=== PATIENT | female | born 1980 | race Caucasian/White ===

== ENCOUNTER 2016-09-19 18:46 | Emergency (ER) | payer MEDICAID ==
[~2016-09-19] VITALS: Wt 66.0 kg
[~2016-09-19 18:46] MED LIST: IBUP-1542 PO; IBUP800T25 PO; ONDA4TAB35 PO; TRAM50TA2 PO
[2016-09-19] MEDS ORDERED: ONDANSETRON (ODT) 4 MG TAB ODT STA (20:35)
[2016-09-19] MEDS ORDERED: KETOROLAC 60 MG INJ IM STA (20:35)
[2016-09-19] MEDS ORDERED: HYDR-906 PO (21:30)
[2016-09-19] MEDS ORDERED: ONDA4TAB14 PO (21:30)
[2016-09-19] MEDS ORDERED: ASPI1TAB30 PO (21:30)
--- NOTE | 2016-09-19 21:32 | ERD ---
ER Documentation Chief Complaint Date/Time DATE: 09/19/16 TIME: 21:30 Chief Complaint POMPA with dizziness and fatigue x8 days HPI 36-year-old female presents with headache that is on the right side of her head that she has had intermittently for the past 8 days. Denies any nausea or vomiting. Denies any photosensitivity, blurry, or double vision. Denies trauma. She has taken Motrin which does not really help. Denies any neck stiffness. Denies any fever. ROS All systems reviewed and are negative except as per history of present illness. Medications Home Meds Active Scripts Aspirin/Acetaminophen/Caffeine (Excedrin Migraine Caplet) 1 Each Tablet, 1 EACH PO Q6, #30 TAB Prov:ZACK CRAFT PA-C 09/19/16 Ondansetron (Ondansetron Odt) 4 Mg Tab.rapdis, 4 MG PO Q6H Y for NAUSEA AND/OR VOMITING, #15 TAB Prov:ZACK CRAFT PA-C 09/19/16 Hydrocodone/Acetaminophen ([place] 5-325 Tablet) 1 Each Tablet, 1 TAB PO Q6H Y for PAIN, #20 TAB Prov:ZACK CRAFT PA-C 09/19/16 Tramadol HCl (Tramadol HCl) 50 Mg Tablet, 50 MG PO Q4 Y for PAIN, #20 TAB Prov:CODIE GARY MD 01/29/16 Ibuprofen* (Motrin*) 600 Mg Tab, 600 MG PO Q6, #20 TAB Prov:CODIE GARY MD 01/29/16 Ondansetron Hcl* (Zofran* ODT) 4 mg -ODT Tab.disper, 4 MG PO DAILY Y for NAUSEA AND/OR VOMITING, #10 TAB 0 Refills Prov:MAGUI MARTINO PA-C 07/19/15 Ibuprofen* (Motrin*) 800 Mg Tab, 800 MG PO Q8, #30 TAB 0 Refills Prov:MAGUI MARTINO PA-C 07/19/15 Allergies Allergies: Coded Allergies: No Known Allergy (Unverified , 01/29/16) PMhx/Soc History of Surgery: No Anesthesia Reaction: No Hx Neurological Disorder: No Hx Respiratory Disorders: No Hx Psychiatric Problems: No Hx Miscellaneous Medical Probl: No Hx Alcohol Use: No Hx Substance Use: No Hx Tobacco Use: No Smoking Status: Never smoker FmHx Family History: No diabetes Physical Exam Vitals Vital Signs Date Time Temp Pulse Resp B/P Pulse Ox O2 Delivery O2 Flow Rate FiO2 09/19/16 18:50 97.9 59 20 109/59 99 Physical Exam General: well developed, well nourished, alert, nontoxic, no distress Head: normocephalic, atraumatic Eyes: PERRL, normal conjunctiva Neck: Supple, nontender, no lymphadenopathy, no midline tenderness Oropharynx: no tonsilar erythema or edema, uvula midline, no exudates, no kissing tonsils, no drooling Respiratory: Clear to auscaultation bilaterally, speaks in full sentences, no use of accesory muscles or labored breathing, no rales, ronchi, or wheezing Cardiovascular: RRR, No murmurs GI: soft, non tender, non distended, negative murphys sign, negative mcburneys point tenderness, no cva tenderness bilaterally, no rebound or guarding Neuro: CN 2-12 intact, normal speech, pan devulcanizer helper strength 5/5 bilaterally, rapid alternating movements wnl, romberg and pronator drift wnl Results 24 hrs Current Medications Medications (Trade) Dose Ordered Sig/Angie Route PRN Reason Start Time Stop Time Status Last Admin Dose Admin Ketorolac Tromethamine (Toradol) 60 mg ONCE STAT IM 09/19/16 20:35 09/19/16 20:36 DC 09/19/16 20:51 Ondansetron HCl (Zofran Odt) 4 mg ONCE STAT ODT 09/19/16 20:35 09/19/16 20:36 DC 09/19/16 20:51 Procedures/MDM 36-year-old female presents with headache. Vital signs are normal she is well- appearing in no distress. Her neurological examination is normal. She was given Toradol and Zofran with some improvement of her symptoms. I discharged her with Excedrin, Zofran, and a small amount of Broad Top. I doubt any acute emergent intracranial pathology given her presentation, normal vitals, normal neurological examination therefore no CT scan was ordered. Recommended this patient follow up with her primary care doctor within 48 hours or return to the emergency room for any worsening of symptoms. However this time I do believe there is suitable for outpatient management. I answered all their questions and they agreed with the plan and were discharged home. Departure Diagnosis: Primary Impression: Migraine Condition: Stable Patient Instructions: Headache, Migraine (Classical) Additional Instructions: Llame al doctor MAANA y grace king MAGGI PARA DENTRO DE 1-2 MORALES.Dgale a la secretaria que nosotros le instruimos hacer esta maggi.Avise o llame si cheney condicin se empeora antes de la maggi. Regresa aqui si peor o no mejor. ZACK CRAFT PA-C September 19, 2016 21:32
[2016-09-19 21:38] VITALS: PULSE 64; RESP 16; TEMP 98.1
== END 2016-09-19 21:39 | disposition home or self-care (01) ==
LOC: FTE 18:46
DX: G43.909 Migraine, unspecified, not intractable, without status migrainosus (principal)
CPT/HCPCS: 96372; J1885; Z7502; Z7610

== ENCOUNTER 2016-10-02 08:30 | Emergency (ER) | payer MEDICAID ==
[~2016-10-02] VITALS: Wt 66.0 kg
[~2016-10-02 08:30] MED LIST changes: +ASPI1TAB30 PO; +HYDR-906 PO; +ONDA4TAB14 PO
[2016-10-02] MEDS ORDERED: HYDROCODONE/APAP (5/325) TAB PO ONE (09:30)
--- NOTE | 2016-10-02 09:48 | RADRPT ---
PROCEDURE: CT Brain without. CLINICAL INDICATION: Headaches. TECHNIQUE: A CT of the brain was performed on a multi-slice CT scanner utilizing axial sections fr om the skull base through the vertex without contrast. Coronal and sagittal reconstructed images w ere provided. One or more of the following does reduction techniques were used: Automated exposure control; adjustment of the mA and/or kV according to patient size; use of the aorta of reconstructi on technique. Images were reviewed on a high-resolution PACS workstation. The exam CTDI = 44.8 mGy. The exam DLP = 630.2 mGy-cm. COMPARISON: None available FINDINGS: The ventricles and sulci are symmetric and normal in size and morphology. There is no evidence of i ntracranial hemorrhage, mass effect, edema or midline shift. No abnormal intra-axial or extra-axial fluid collections are seen. The higuera/white matter differentiation is well preserved. The osseous structures and visualized sinuses are unremarkable. The mastoid air cells are clear. Th e surrounding soft tissue scalp and bony calvarium are intact and normal. IMPRESSION: 1. Unremarkable CT brain. RPTAT: AA .Yemi Feldman MD, MD Date Time Electronically viewed and signed by .Yemi Feldman MD, MD on 10/02/2016 09:48 .B/
[2016-10-02 10:26] LABS: URINE BLOOD (Dip) POC Negative (NEGATIVE)
[2016-10-02] MEDS ORDERED: NAPR-260 PO (10:33)
[2016-10-02] MEDS ORDERED: HYDR-906 PO (10:33)
--- NOTE | 2016-10-02 11:46 | ERD ---
ER Documentation Chief Complaint Date/Time DATE: 10/02/16 TIME: 11:43 Chief Complaint HEADACHE X15 DAYS, NO INJURY, EAR PROBLEM HPI 36-year-old female comes emergency department with headache 2 weeks. She describes as pressure-like, bitemporal, constant. She states that comes and goes throughout the day and not improving with the medication as prescribed last time including extension. She states that she usually gets migraines with throbbing pain however states that headache is different this time. She denies any blurred vision, paresthesias or weakness. She denies fevers or chills or neck stiffness. ROS All systems reviewed and are negative except as per history of present illness. Medications Home Meds Active Scripts Naproxen* (Naprosyn*) 500 Mg Tablet, 500 MG PO BID Y for PAIN AND/OR INFLAMMATION, #30 TAB Prov:ALLAN DUKE PA-C 10/02/16 Hydrocodone/Acetaminophen ([place] 5-325 Tablet) 1 Each Tablet, 1 TAB PO Q6H Y for PAIN, #7 TAB Prov:ALLAN DUKE PA-C 10/02/16 Aspirin/Acetaminophen/Caffeine (Excedrin Migraine Caplet) 1 Each Tablet, 1 EACH PO Q6, #30 TAB Prov:ZACK CRAFT PA-C 09/19/16 Ondansetron (Ondansetron Odt) 4 Mg Tab.rapdis, 4 MG PO Q6H Y for NAUSEA AND/OR VOMITING, #15 TAB Prov:ZACK CRAFT PA-C 09/19/16 Hydrocodone/Acetaminophen ([place] 5-325 Tablet) 1 Each Tablet, 1 TAB PO Q6H Y for PAIN, #20 TAB Prov:ZACK CRAFT PA-C 09/19/16 Tramadol HCl (Tramadol HCl) 50 Mg Tablet, 50 MG PO Q4 Y for PAIN, #20 TAB Prov:CODIE GARY MD 01/29/16 Ibuprofen* (Motrin*) 600 Mg Tab, 600 MG PO Q6, #20 TAB Prov:CODIE GARY MD 01/29/16 Ondansetron Hcl* (Zofran* ODT) 4 mg -ODT Tab.disper, 4 MG PO DAILY Y for NAUSEA AND/OR VOMITING, #10 TAB 0 Refills Prov:MAGUI MARTINO PA-C 07/19/15 Ibuprofen* (Motrin*) 800 Mg Tab, 800 MG PO Q8, #30 TAB 0 Refills Prov:SALENAMAGUI LOPEZ 07/19/15 Allergies Allergies: Coded Allergies: No Known Allergy (Unverified , 01/29/16) PMhx/Soc History of Surgery: No Anesthesia Reaction: No Hx Neurological Disorder: No Hx Respiratory Disorders: No Hx Psychiatric Problems: No Hx Miscellaneous Medical Probl: No Hx Alcohol Use: No Hx Substance Use: No Hx Tobacco Use: No Smoking Status: Never smoker Physical Exam Vitals Vital Signs Date Time Temp Pulse Resp B/P Pulse Ox O2 Delivery O2 Flow Rate FiO2 10/02/16 08:35 97.8 71 17 112/72 97 Physical Exam General: Well-developed, well-nourished. The patient appears in no acute distress. HEENT: Head is normocephalic, atraumatic. No scleral icterus. Pupils are equal , round, and reactive. Oral mucous membranes are moist. No pharyngeal erythema. Neck: Supple. Nontender. Lungs: Clear to auscultation. Normal air movement. Heart: Regular rate and rhythm. S1 and S2 are normal. No murmurs, gallops, or rubs. Abdomen: Soft, nontender, nondistended. Bowel sounds are normoactive. Extremities: No clubbing or cyanosis. Normal pulses. Moving extremities x 4. No weakness. Neuro: M/S: Alert and oriented Face: EOMI, CN II-XII grossly intact Motor: Normal strength throughout Sensation: Normal sensation throughout Speech: Normal Cerebel: Normal coordination Normal gait Normal finger to nose DTR: 2+ and symmetric upper/lower extremities Skin: Normal turgor. No rash or lesions. Results 24 hrs Laboratory Tests Test 10/02/16 10:29 Bedside Urine pH (LAB) 6.0 Bedside Urine Protein (LAB) Negative Bedside Urine Glucose (UA) Negative Bedside Urine Ketones (LAB) Negative Bedside Urine Blood Negative Bedside Urine Nitrite (LAB) Negative Bedside Urine Leukocyte Esterase (L Negative Current Medications Medications (Trade) Dose Ordered Sig/Angie Route PRN Reason Start Time Stop Time Status Last Admin Dose Admin Acetaminophen/ Hydrocodone Bitart ([place] (5/325)) 1 tab ONCE ONCE PO 10/02/16 09:30 10/02/16 09:31 DC 10/02/16 11:00 PROCEDURE: CT Brain without. CLINICAL INDICATION: Headaches. TECHNIQUE: A CT of the brain was performed on a multi-slice CT scanner utilizing axial sections from the skull base through the vertex without contrast. Coronal and sagittal reconstructed images were provided. One or more of the following does reduction techniques were used: Automated exposure control; adjustment of the mA and/or kV according to patient size; use of the aorta of reconstruction technique. Images were reviewed on a high-resolution PACS workstation. The exam CTDI = 44.8 mGy. The exam DLP = 630.2 mGy-cm. COMPARISON: None available FINDINGS: The ventricles and sulci are symmetric and normal in size and morphology. There is no evidence of intracranial hemorrhage, mass effect, edema or midline shift. No abnormal intra-axial or extra-axial fluid collections are seen. The higuera/white matter differentiation is well preserved. The osseous structures and visualized sinuses are unremarkable. The mastoid air cells are clear. The surrounding soft tissue scalp and bony calvarium are intact and normal. IMPRESSION: 1. Unremarkable CT brain. RPTAT: AA .Yemi Feldman MD, MD Date Time Electronically viewed and signed by .Yemi Feldman MD, MD on 2016 09:48 .B/ Procedures/MDM 36-year-old female comes to emergency room with bitemporal headache, I suspect patient's headache is tension-like. She was previously seen was given pain medication however the extension was not helping. She was trialed on G[place]am in emergency department and reports significant treatment of her pain. CT scan of the head was ordered given that this is not her usual headache, and has not been improving for 2 weeks. There is no evidence of mass, hemorrhage, no AV malformation. Additionally other sources including meningitis encephalitis are considered however unlikely. Patient will be given a short course of [place] as well as Naprosyn for pain. Departure Diagnosis: Primary Impression: Headache Condition: Good Patient Instructions: Tension Headaches, Self-Care for Headaches ALLAN DUKE PA-C October 02, 2016 11:46
== END 2016-10-02 11:03 | disposition home or self-care (01) ==
LOC: FTE 08:30
DX: R51 Headache (principal); Z79.82 Long term (current) use of aspirin
CPT/HCPCS: 70450; 81003; Z7610

== ENCOUNTER 2017-05-05 10:10 | Emergency (ER) | payer MEDICAID ==
[~2017-05-05] VITALS: Ht 157.5 cm; Wt 80.0 kg
[~2017-05-05 10:10] MED LIST changes: -ASPI1TAB30 PO; +ASPI1TAB31 PO; +NAPR-260 PO
[2017-05-05 10:18] VITALS: Ht 157.5 cm; Wt 80.0 kg
[2017-05-05] MEDS ORDERED: KETOROLAC 30 MG INJ IM STA (12:50)
[2017-05-05] MEDS ORDERED: TRAM50TA2 PO (12:56)
[2017-05-05] MEDS ORDERED: NAPR-260 PO (12:57)
--- NOTE | 2017-05-05 13:04 | ERD ---
ER Documentation Chief Complaint Chief Complaint Headache 8 days. HPI Patient is a 29-year-old female with concerns of a headache in her right temporal region. Patient states she has had a headache for the last 8 days. She states that she is also having pain in her right ear. Patient denies that this is the worst headache of her life. Patient states her current pain level is a 7 out of 10. Patient describes the pain to be throbbing in nature. Patient denies any sudden, worsening pain. Patient denies any nausea, vomiting , photophobia, phonophobia, fever, chills, neck pain, neck stiffness, chest pain , shortness of breath or LOC. Patient states she been taking ibuprofen with no alleviation of symptoms. Patient states she has noticed that her jaw pops in and out when opening and closing it. Patient has not seen a dentist for this pain. ROS All systems reviewed and are negative except as per history of present illness. Medications Home Meds Active Scripts Naproxen* (Naprosyn*) 500 Mg Tablet, 500 MG PO BID Y for PAIN AND/OR INFLAMMATION, #15 TAB Prov:RE JOSEPH PA-C 05/05/17 Tramadol HCl (Tramadol HCl) 50 Mg Tablet, 50 MG PO Q4 Y for PAIN, #10 TAB Prov:RE JOSEPH PA-C 05/05/17 Naproxen* (Naprosyn*) 500 Mg Tablet, 500 MG PO BID Y for PAIN AND/OR INFLAMMATION, #30 TAB Prov:ALLAN DUKE PA-C 10/02/16 Hydrocodone/Acetaminophen ([place] 5-325 Tablet) 1 Each Tablet, 1 TAB PO Q6H Y for PAIN, #7 TAB Prov:ALLAN DUKE PA-C 10/02/16 Aspirin/Acetaminophen/Caffeine (Excedrin Migraine Caplet) 1 Each Tablet, 1 EACH PO Q6, #30 TAB Prov:ZACK CRAFT PA-C 09/19/16 Ondansetron (Ondansetron Odt) 4 Mg Tab.rapdis, 4 MG PO Q6H Y for NAUSEA AND/OR VOMITING, #15 TAB Prov:ZACK CRAFT PA-C 09/19/16 Hydrocodone/Acetaminophen ([place] 5-325 Tablet) 1 Each Tablet, 1 TAB PO Q6H Y for PAIN, #20 TAB Prov:ZACK CRAFT PA-C 09/19/16 Tramadol HCl (Tramadol HCl) 50 Mg Tablet, 50 MG PO Q4 Y for PAIN, #20 TAB Prov:CODIE GARY MD 01/29/16 Ibuprofen* (Motrin*) 600 Mg Tab, 600 MG PO Q6, #20 TAB Prov:CODIE GARY MD 01/29/16 Ondansetron Hcl* (Zofran* ODT) 4 mg -ODT Tab.disper, 4 MG PO DAILY Y for NAUSEA AND/OR VOMITING, #10 TAB 0 Refills Prov:MAGUI MARTINO PA-C 07/19/15 Ibuprofen* (Motrin*) 800 Mg Tab, 800 MG PO Q8, #30 TAB 0 Refills Prov:MAGUI MARTINO PA-C 07/19/15 Allergies Allergies: Coded Allergies: No Known Allergy (Unverified , 05/05/17) PMhx/Soc Medical and Surgical Hx: pt denies Medical Hx, pt denies Surgical Hx History of Surgery: No Anesthesia Reaction: No Hx Neurological Disorder: No Hx Respiratory Disorders: No Hx Psychiatric Problems: No Hx Miscellaneous Medical Probl: No Hx Alcohol Use: No Hx Substance Use: No Hx Tobacco Use: No Smoking Status: Never smoker Physical Exam Vitals Vital Signs Date Time Temp Pulse Resp B/P Pulse Ox O2 Delivery O2 Flow Rate FiO2 05/05/17 13:26 97.8 68 18 118/64 99 Room Air 05/05/17 10:18 98.1 66 18 122/58 99 Physical Exam GENERAL: Well-developed, well-nourished female. Appears in no acute distress. Speaking in full sentences. HEAD: Normocephalic, atraumatic. No deformities or ecchymosis. EYE: Pupils equal, round, and reactive to light. EOMs intact. No conjunctival erythema. No eye discharge. ENT: External ear without any masses or tenderness. Auditory canals clear bilaterally. TM visualized bilaterally, non-erythematous, non-bulging. Nasal mucosa pink with no discharge. Oropharynx is pink without any tonsillar erythema or exudates. No uvula deviation. No kissing tonsils. Audible click heard when patient opens and closes mouth. NECK: Supple. No meningismus. Normal ROM of the neck. LUNG: Clear to auscultation bilaterally. No rhonchi, wheezing, rales or coarse breath sounds. HEART: Regular rate and rhythm. No murmurs, rubs or gallops. BACK: No midline tenderness. EXTREMITIES: Equal pulses bilaterally. No peripheral clubbing, cyanosis or edema. No unilateral leg swelling. NEUROLOGIC: Alert and oriented x3, cooperative. Mood and affect appropriate to situation. Cranial nerves II through XII are grossly intact. Normal speech. Motor exam: 5/5 strength in upper and lower extremities. Sensory exam: Sensation intact to light touch on all four extremities. Cerebellar function exam: No dysmetria on [id number] test. Steady gait. No pronator drift. SKIN: Normal color. Warm and dry. No rashes or lesions. Results 24 hrs Current Medications Medications (Trade) Dose Ordered Sig/Angie Route PRN Reason Start Time Stop Time Status Last Admin Dose Admin Ketorolac Tromethamine (Toradol) 30 mg ONCE STAT IM 05/05/17 12:50 05/05/17 12:51 DC 05/05/17 13:07 Procedures/MDM ED COURSE: The patient was stable throughout ED course. I kept the patient and/or family informed of laboratory and diagnostic imaging results throughout the ED course. MEDICATIONS GIVEN: Toradol Patient tolerated medication well with no adverse reactions. Patient reported improvement in pain. MEDICAL DECISION MAKING: This is a 37-year-old female presents ED for concerns of a headache 8 days. Patient does report pain when opening closing her mouth and her right TMJ. Patient has not seen a dentist. Patient has a history of headaches and states that this is not the worst headache of her life. Vital signs were reviewed. Patient was afebrile. Patient is not hypoxic. Patient denied any fevers, neck stiffness, jaw claudication, visual changes or LOC. Full neurological exam was normal. Urine test is negative. I did review the patient's medical records which showed she had a negative CT scan on 10-02-16. I do not feel that there is an indication for repeat study at this time. Patient was given Toradol here in the ED. Patient was advised that she should follow-up with a dentist for her right sided TMJ pain. Patient's headache and headache are likely due to TMJ problems. Low suspicion for intracranial hemorrhage, meningitis, encephalitis, CO poisoning, temporal arteritis, benign intracranial hypertension, intracranial mass. sinusitis, cluster headache, . Patient was nontoxic, [id number] prior to discharge. PRESCRIPTIONS: Tramadol, naproxen DISCHARGE: At this time, patient is stable for discharge and outpatient management. I have encouraged the patient to hydrate well. I have instructed the patient to follow- up with his/her primary care physician in 1-2 days. If symptoms persist, patient may need to see a specialist for further examinations and testing. I have instructed the patient to promptly return to the ER at any time for any new or worsening symptoms including increased increased pain, fever, nausea, vomiting, numbness, neck stiffness, visual changes, weakness or LOC. The patient and/or family expressed understanding of and agreement with this plan. All questions were answered. Home care instructions were provided. Disclaimer: Inadvertent spelling and grammatical errors are likely due to EHR/ dictation software use and do not reflect on the overall quality of patient care. Also, please note that the electronic time recorded on this note does not necessarily reflect the actual time of the patient encounter. Departure Diagnosis: Primary Impression: Headache Headache type: unspecified Headache chronicity pattern: unspecified pattern Intractability: not intractable Qualified Code: R51 - Nonintractable headache, unspecified chronicity pattern, unspecified headache type Additional Impression: Temporomandibular joint (TMJ) pain Laterality: right Qualified Code: M26.621 - Arthralgia of right temporomandibular joint Condition: Stable Patient Instructions: Self-Care for Headaches, Helping Your Temporomandibular Joint (TMJ) Heal Referrals: [facility] YOU HAVE RECEIVED A MEDICAL SCREENING EXAM AND THE RESULTS INDICATE THAT YOU DO NOT HAVE A CONDITION THAT REQUIRES URGENT TREATMENT IN THE EMERGENCY DEPARTMENT. FURTHER EVALUATION AND TREATMENT OF YOUR CONDITION CAN WAIT UNTIL YOU ARE SEEN IN YOUR DOCTORS OFFICE WITHIN THE NEXT 1-2 DAYS. IT IS YOUR RESPONSIBILITY TO MAKE AN APPOINTMENT FOR FOLOW-UP CARE. IF YOU HAVE A PRIMARY DOCTOR --you should call your primary doctor and schedule an appointment IF YOU DO NOT HAVE A PRIMARY DOCTOR YOU CAN CALL OUR PHYSICIAN REFERRAL HOTLINE AT IF YOU CAN NOT AFFORD TO SEE A PHYSICIAN YOU CAN CHOSE FROM THE FOLLOWING [facility] CL[facility] [address] [facility]. [facility] [address] [facility]. [facility] [address] [facility]. [facility] [address] [facility]. [facility] [address] [facility]. [facility]. [address] [facility]. [facility] YOU HAVE RECEIVED A MEDICAL SCREENING EXAM AND THE RESULTS INDICATE THAT YOU DO NOT HAVE A CONDITION THAT REQUIRES URGENT TREATMENT IN THE EMERGENCY DEPARTMENT. FURTHER EVALUATION AND TREATMENT OF YOUR CONDITION CAN WAIT UNTIL YOU ARE SEEN IN YOUR DOCTORS OFFICE WITHIN THE NEXT 1-2 DAYS. IT IS YOUR RESPONSIBILITY TO MAKE AN APPOINTMENT FOR FOLOW-UP CARE. IF YOU HAVE A PRIMARY DOCTOR --you should call your primary doctor and schedule and appointment IF YOU DO NOT HAVE A PRIMARY DOCTOR YOU CAN CALL OUR PHYSICIAN REFERRAL HOTLINE AT . IF YOU CAN NOT AFFORD TO SEE A PHYSICIAN YOU CAN CHOSE FROM THE FOLLOWING [facility] INSTITUTIONS: [facility] [address] [place] [address] [facility] [address] [place] [address] [facility] [address] [place] [address] [facility] ([facility] walk in clinic) Additional Instructions: Follow-up with a dentist on an outpatient basis. See referral information. Call your primary care doctor TOMORROW for an appointment during the next 1-2 days.See the doctor sooner or return here if your condition worsens before your appointment time. RE JOSEPH PA-C May 05, 2017 13:04
[2017-05-05 13:26] VITALS: BP 118/64; PULSE 68; RESP 18; TEMP 97.8
== END 2017-05-05 13:25 | disposition home or self-care (01) ==
LOC: FTE 10:10
DX: M26.621 Arthralgia of right temporomandibular joint (principal)
CPT/HCPCS: 96372; J1885; Z7502

== ENCOUNTER 2017-12-31 20:12 | Emergency (ER) | END 2017-12-31 23:02 | disposition home or self-care (01) ==

== ENCOUNTER 2018-05-23 11:14 | Emergency (ER) | payer MEDICAID ==
[~2018-05-23] VITALS: Wt 71.6 kg
[~2018-05-23 11:14] MED LIST changes: +ALPR0.5T PO; -ASPI1TAB31 PO; -HYDR-906 PO; -IBUP800T25 PO; -NAPR-260 PO; -ONDA4TAB14 PO; -ONDA4TAB35 PO; -TRAM50TA2 PO
[2018-05-23 11:17] VITALS: BP 132/64; PULSE 75; RESP 16
[2018-05-23] MEDS ORDERED: KETOROLAC 60 MG INJ IM STA (12:04)
[2018-05-23] MEDS ORDERED: HYDR-4011 PO (12:07)
[2018-05-23] MEDS ORDERED: CYCL10TA7 PO (12:07)
[2018-05-23] MEDS ORDERED: NAPR-985 PO (12:07)
[2018-05-23] MEDS ORDERED: MED4DP PO (12:07)
--- NOTE | 2018-05-23 12:47 | ERD ---
ER Documentation Chief Complaint Chief Complaint LOW BACK PAIN, NO INJURY HPI 38-year-old female presenting with bilateral lower back pain times 20 days. Patient denies any traumatic injury or falls. 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 Patient denies any numbness or tingling to her extremities and denies weakness. Her pain is worse with movement. Patient is taken ibuprofen with no alleviation of symptoms. Denies any fevers. Denies any weakness to her extremities and no numbness. Denies normal urination bowel mood. Denies medical problems. NKDA. Surgical history denies. Social history denies ROS All systems reviewed and are negative except as per history of present illness. Medications Home Meds Active Scripts Cyclobenzaprine Hcl* (Cyclobenzaprine Hcl*) 10 Mg Tablet, 10 MG PO TID, #15 TAB Prov:ANGEL FORTUNE PA-C 05/23/18 Hydrocodone/Acetaminophen (Rake 5-325 Tablet) 1 Each Tablet, 1 TAB PO Q6H PRN for PAIN, #7 TAB Prov:ANGEL FORTUNE PA-C 05/23/18 Naproxen* (Naprosyn*) 500 Mg Tablet, 500 MG PO BID PRN for PAIN AND/OR INFLAMMATION, #30 TAB Prov:ANGEL FORTUNE PA-C 05/23/18 Methylprednisolone* (Medrol* DOSE PACK) 4 Mg/Dose-Pack Tab.ds.pk, 4 MG PO . DIRECTED, #1 PACKET Prov:ANGEL FORTUNE PA-C 05/23/18 Alprazolam* (Xanax*) 0.5 Mg Tab, 0.5 MG PO TID PRN for ANXIETY, #12 TAB Prov:DYANA FUNG MD 12/31/17 Ibuprofen* (Motrin*) 600 Mg Tab, 600 MG PO Q8 PRN for PAIN AND/OR INFLAMMATION, #30 TAB Prov:DYANA FUNG MD 12/31/17 Allergies Allergies: Coded Allergies: No Known Allergy (Unverified , 12/31/17) PMhx/Soc History of Surgery: Yes ("cosmetic only") Anesthesia Reaction: No Hx Neurological Disorder: No Hx Respiratory Disorders: No Hx Cardiac Disorders: No Hx Psychiatric Problems: No Hx Miscellaneous Medical Probl: No Hx Alcohol Use: Yes (quit 8 yrs ago) Hx Substance Use: No Hx Tobacco Use: No (quit 1.5 years ago) Smoking Status: Former smoker FmHx Family History: No diabetes, No coronary disease, No other Physical Exam Vitals Vital Signs Date Temp Pulse Resp B/P (MAP) Pulse Ox O2 O2 Flow FiO2 Time Delivery Rate 05/23/18 97.0 75 16 132/64 98 11:17 (86) Physical Exam GENERAL: The patient is well-appearing, well-nourished, in no acute distress CHEST: Clear to auscultation bilaterally. There are no rales, wheezes or rh onchi. HEART: Regular rate and rhythm. No murmurs, clicks, rubs or gallops. No S3 or S4. ABDOMEN:Soft, nontender and nondistended. Good bowel sounds. No rebound or guarding. No gross peritonitis. No gross organomegaly or masses. BACK: No midline or flank tenderness. Tender palpation of bilateral paraspinous muscles with no midline tenderness. EXTREMITIES: Equal pulses bilaterally. There is no peripheral clubbing, cyanosis or edema. No focal swelling or erythema. Full range of motion. Grossly neurovascularly intact. NEUROLOGIC: Alert and oriented. Cranial nerves II through XII intact. Motor strength in all 4 extremities with 5 out of 5 strength. Sensation grossly intact. Normal speech and gait. Babinski negative. DTR 2+ throughout. SKIN: There is no apparent rash or petechiae. The skin is warm and dry. Results 24 hrs Laboratory Tests Test 05/23/18 12:19 POC Beta HCG, Qualitative NEGATIVE Current Medications Medications Dose Sig/Angie Start Time Status Last (Trade) Ordered Route PRN Stop Time Admin Dose Reason Admin Ketorolac 60 mg ONCE STAT 05/23/18 DC 05/23/18 Tromethamine IM 12:04 12:31 (Toradol) 05/23/18 12:05 Procedures/MDM ER course: Toradol given ED. MDM: 38-year-old female presenting with back pain. Patient's pain is likely muscular skeletal. It is worse with movement. I have low suspicion for cauda equina, discitis or epidural abscess. I have low suspicion for Urinary tract infection. Patient is discharged stricter precautions and told to follow-up with primary care within 1-2 days for close evaluation. Patient is told symptoms change or worsen to immediately return to the ER. All questions answered at discharge Departure Diagnosis: Primary Impression: Back pain Condition: Stable Patient Instructions: Back Pain (Acute Or Chronic) Referrals: [facility] YOU HAVE RECEIVED A MEDICAL SCREENING EXAM AND THE RESULTS INDICATE THAT YOU DO NOT HAVE A CONDITION THAT REQUIRES URGENT TREATMENT IN THE EMERGENCY DEPARTMENT. FURTHER EVALUATION AND TREATMENT OF YOUR CONDITION CAN WAIT UNTIL YOU ARE SEEN IN YOUR DOCTORS OFFICE WITHIN THE NEXT 1-2 DAYS. IT IS YOUR RESPONSIBILITY TO MAKE AN APPOINTMENT FOR FOLOW-UP CARE. IF YOU HAVE A PRIMARY DOCTOR --you should call your primary doctor and schedule an appointment IF YOU DO NOT HAVE A PRIMARY DOCTOR YOU CAN CALL OUR PHYSICIAN REFERRAL HOTLINE AT IF YOU CAN NOT AFFORD TO SEE A PHYSICIAN YOU CAN CHOSE FROM THE FOLLOWING [facility] CLINICS [facility] [address] [facility] [facility] [facility] [address] [facility] [facility] [address] [facility] [address] [facility] [facility] [address] [facility]. [facility] [address] Additional Instructions: FOLLOW UP WITH YOUR PRIMARY CARE PHYSICIAN TOMORROW.Return to this facility if you are not improving as expected. ANGEL FORTUNE PA-C May 23, 2018 12:47
== END 2018-05-23 13:00 | disposition home or self-care (01) ==
LOC: FTE 11:14
DX: M54.5 Low back pain (principal); Z87.891 Personal history of nicotine dependence
CPT/HCPCS: 81025; 96372; J1885; Z7502